=== PATIENT | female | born 2000 | race Two or more races ===

== ENCOUNTER 2022-06-03 16:27 | Emergency (ER) | payer SELFPAY ==
[~2022-06-03] VITALS: Ht 172.7 cm; Wt 64.5 kg
[2022-06-03 16:37] VITALS: BP 133/83
[2022-06-03] MEDS ORDERED: diphenhdrAMINE HCL 50 MG/1 ML VL IM ONE (17:15)
== END 2022-06-03 18:27 | disposition left against medical advice (07) ==
LOC: ER 16:27
DX: T78.40XA Allergy, unspecified, initial encounter (principal); Z53.21 Procedure and treatment not carried out due to patient leaving prior to being seen by health care provider; Y92.89 Other specified places as the place of occurrence of the external cause